=== PATIENT | female | born 1930 | race Caucasian/White ===

== ENCOUNTER → 2017-03-11 | Outpatient (CLI) | payer MEDICARE ==
[~2017-03-11] MED LIST: ACET325T PO; PRIL20TA2 PO; ROLLER WALKER1 MI1; TIMO0.255 OU; TIMO5SOL EACH EYE
[2017-03-11 16:17] LABS: AUTOMATED NEUTROPHIL # 3.5 TH/MM3 (1.8-7.7); BASOPHIL # 0.1 TH/MM3 (0-0.2); BASOPHIL % 0.4 % (0.0-2.0); EOSINOPHIL # 0.1 TH/MM3 (0-0.4); EOSINOPHIL % 0.4 % (0.0-4.0); HEMATOCRIT 38.7 % (35.0-46.0); LYMPH % 82.7 % (9.0-44.0); LYMPHOCYTE # 19.3 TH/MM3 (1.0-4.8); MEAN CELL VOLUME 88.4 FL (80.0-100.0); MEAN CORPUSCULAR HEMOGLOBIN 28.7 PG (27.0-34.0); MEAN CORPUSCULAR HGB CONC 32.5 % (32.0-36.0); MONO % 1.6 % (0.0-8.0); NEUT % 14.9 % (16.0-70.0); PLATELET COUNT 168 TH/MM3 (150-450); RED BLOOD COUNT 4.37 MIL/MM3 (4.00-5.30); RED CELL DISTRIBUTION WIDTH 15.2 % (11.6-17.2); WHITE BLOOD COUNT 23.3 TH/MM3 (4.0-11.0)
[2017-03-11 16:35] LABS: HEMO FLAGS AUTO DIFF
[2017-03-11 18:32] LABS: PLATELET ESTIMATE SMEAR NORMAL (NORMAL); PLATELET MORPHOLOGY NORMAL (NORMAL); SCAN/DIFF AUTO DIFF CONFIRMED; SMUDGE CELLS PRESENT PRESENT
== END ==
LOC: PLAB 12:40
PROVIDERS: ATTEND Family Medicine
DX: D72.828 Other elevated white blood cell count (principal)
CPT/HCPCS: 36415; 85025

== ENCOUNTER 2017-03-14 22:34 | Inpatient (IN) | payer MEDICARE ==
[~2017-03-14] VITALS: Ht 165.1 cm; Wt 73.6 kg
[~2017-03-14 22:34] MED LIST changes: -ACET325T PO; -ROLLER WALKER1 MI1; -TIMO5SOL EACH EYE
[2017-03-14 22:45] VITALS: BP 101/48; PULSE 70; RESP 14; RESP 16; TEMP 97.5; O2SAT 98; O2SAT 99
[2017-03-14] MEDS ORDERED: TIMO5SOL EACH EYE (22:45)
--- NOTE | 2017-03-14 22:58 | PD ---
HPI Chief Complaint: Altered Mental Status Time Seen by Provider: 22:41 Travel History International Travel<30 days: No Contact w/Intl Traveler<30days: No Traveled to known affect area: No History of Present Illness HPI This 87-year-old female is brought by paramedics. She was found in the parking lot of a restaurant. The hazard lights on a car with blinking and she was trying to get the car started but seemed quite confused. We initially did not know anything about this lady. She had reportedly been in the restaurant earlier. After he has arrived here I been able to talk with her daughter, Vanessa Gomez at . She indicates that the patient has recently been having some mild problems with her short-term memory but has not been overtly confused. The patient is a patient of Dr. Houston. He has an appointment with Dr. Houston this week for evaluation of possible slow leukemia. She does have a history of glaucoma and is on atenolol. The patient lives alone. sHe does drive. Patient denies any pain. She denies fevers or chills. PFSH Past Medical History Heart Rhythm Problems: No Cancer: Yes (SKIN) Cardiac Catheterization: No Cardiovascular Problems: No High Cholesterol: No Congestive Heart Failure: No Diabetes: No Diminished Hearing: No GERD: Yes (ACID REFLUX) Glaucoma: Yes Hypertension: No Immunizations Current: Yes Myocardial Infarction: No ?: Not Menopausal: Yes Past Surgical History Appendectomy: Yes Coronary Artery Bypass Graft: No Hysterectomy: Yes Tonsillectomy: Yes Social History Alcohol Use: No Tobacco Use: No Substance Use: No Allergies-Medications (Allergen,Severity, Reaction): Coded Allergies: No Known Allergies (Verified , 03/14/17) Reported Meds & Prescriptions Reported Meds & Active Scripts Active Reported Timolol Opth Drops 0.25 % Soln 1 Drop EACH EYE HS Review of Systems General / Constitutional: No: Fever, Chills Eyes: No: Diploplia, Blurred Vision HENT: No: Headaches, Vertigo Cardiovascular: No: Chest Pain or Discomfort, Palpitations Respiratory: No: Cough, Shortness of Breath Gastrointestinal: No: Nausea, Vomiting Genitourinary: No: Frequency, Dysuria Musculoskeletal: No: Myalgias, Arthralgias Neurologic: Positive: Change in Mentation, No: Weakness, Dizziness, Syncope, Focal Abnormalities Psychiatric: No: Depression Endocrine: No: Cold Intolerance Hematologic/Lymphatic: No: Easy Bruising Physical Exam Narrative GENERAL: Thin female in no acute distress SKIN: Focused skin assessment warm/dry. HEAD: Atraumatic. Normocephalic. EYES: Pupils equal and round. No scleral icterus. No injection or drainage. ENT: No nasal bleeding or discharge. Mucous membranes pink and moist. NECK: Trachea midline. No JVD. CARDIOVASCULAR: Regular rate and rhythm. No murmur appreciated. RESPIRATORY: No accessory muscle use. Clear to auscultation. Breath sounds equal bilaterally. GASTROINTESTINAL: Abdomen soft, non-tender, nondistended. Hepatic and splenic margins not palpable. MUSCULOSKELETAL: No obvious deformities. No clubbing. No cyanosis. No edema. NEUROLOGICAL: Awake and alert. No obvious cranial nerve deficits. Motor grossly within normal limits. Normal speech. She is not oriented to time. She is oriented to place. PSYCHIATRIC: She is very pleasant but her memory is poor Data Data Last Documented VS Vital Signs Date Time Temp Pulse Resp B/P Pulse Ox O2 Delivery O2 Flow Rate FiO2 03/14/17 22:45 97.5 70 14 101/48 98 Orders Electrocardiogram (03/14/17 22:51) Complete Blood Count With Diff (03/14/17 22:51) Comprehensive Metabolic Panel (03/14/17 22:51) Prothrombin Time / Inr (Pt) (03/14/17 22:51) Act Partial Throm Time (Ptt) (03/14/17 22:51) Urinalysis - C+S If Indicated (03/14/17 22:51) Magnesium (Mg) (03/14/17 22:51) Thyroid Stimulating Hormone (03/14/17 22:51) Ct Brain W/O Iv Contrast(Rout) (03/14/17 22:51) Drug Screen, Random Urine (03/14/17 22:51) Alcohol (Ethanol) (03/14/17 22:51) Chest, Single Ap (03/14/17 23:56) Admit Order (Ed Use Only) (03/15/17 00:08) Labs Laboratory Tests Test 03/14/17 23:20 White Blood Count 22.0 TH/MM3 Red Blood Count 4.27 MIL/MM3 Hemoglobin 12.3 GM/DL Hematocrit 37.7 % Mean Corpuscular Volume 88.4 FL Mean Corpuscular Hemoglobin 28.8 PG Mean Corpuscular Hemoglobin 32.6 % Concent Red Cell Distribution Width 14.6 % Platelet Count 165 TH/MM3 Mean Platelet Volume 7.9 FL Neutrophils (%) (Auto) 10.9 % Lymphocytes (%) (Auto) 83.4 % Monocytes (%) (Auto) 4.4 % Eosinophils (%) (Auto) 0.3 % Basophils (%) (Auto) 1.0 % Neutrophils # (Auto) 2.4 TH/MM3 Lymphocytes # (Auto) 18.3 TH/MM3 Monocytes # (Auto) 1.0 TH/MM3 Eosinophils # (Auto) 0.1 TH/MM3 Basophils # (Auto) 0.2 TH/MM3 CBC Comment AUTO DIFF Prothrombin Time 10.5 SEC Prothromb Time International 1.0 RATIO Ratio Activated Partial 24.9 SEC Thromboplast Time Sodium Level 139 MEQ/L Potassium Level 3.8 MEQ/L Chloride Level 103 MEQ/L Carbon Dioxide Level 28.4 MEQ/L Anion Gap 8 MEQ/L Blood Urea Nitrogen 14 MG/DL Random Glucose 94 MG/DL Calcium Level 8.2 MG/DL Magnesium Level 2.3 MG/DL Albumin 3.1 GM/DL MDM Medical Decision Making Medical Screen Exam Complete: Yes Emergency Medical Condition: Yes Medical Record Reviewed: Yes Differential Diagnosis Differential includes subdural hematoma, electrolyte imbalance, UTI, dementia Narrative Course CT scan of the brain has been read as negative for age. Her white count is elevated at 22,000 but there are predominant lymphocytes. Her daughter told me that she is being evaluated for slow moving leukemia and this may be CLL. Her electrolytes are normal. Patient remains quite confused. She cannot be released as she does live alone Diagnosis Primary Impression: Altered mental status Admitting Information Admitting Physician Requests: Observation Junito Hale MD Mar 14, 2017 22:58
[2017-03-14 23:41] LABS: AUTOMATED NEUTROPHIL # 2.4 TH/MM3 (1.8-7.7); BASOPHIL # 0.2 TH/MM3 (0-0.2); EOSINOPHIL # 0.1 TH/MM3 (0-0.4); EOSINOPHIL % 0.3 % (0.0-4.0); HEMATOCRIT 37.7 % (35.0-46.0); LYMPH % 83.4 % (9.0-44.0); LYMPHOCYTE # 18.3 TH/MM3 (1.0-4.8); MEAN CELL VOLUME 88.4 FL (80.0-100.0); MEAN CORPUSCULAR HEMOGLOBIN 28.8 PG (27.0-34.0); MEAN CORPUSCULAR HGB CONC 32.6 % (32.0-36.0); MONO % 4.4 % (0.0-8.0); NEUT % 10.9 % (16.0-70.0); PLATELET COUNT 165 TH/MM3 (150-450); RED BLOOD COUNT 4.27 MIL/MM3 (4.00-5.30); RED CELL DISTRIBUTION WIDTH 14.6 % (11.6-17.2)
[2017-03-14 23:45] LABS: HEMO FLAGS AUTO DIFF
--- NOTE | 2017-03-14 23:52 | RADHPO ---
EXAM DATE/TIME: 03/14/2017 23:24 [facility] COMPARISON: No previous studies available for comparison. INDICATIONS : Altered mental status. RADIATION DOSE: 63.92 CTDIvol (mGy) MEDICAL HISTORY : None SURGICAL HISTORY : None. ENCOUNTER: Initial ACUITY: 1 day PAIN SCALE: 0/10 LOCATION: cranial TECHNIQUE: Multiple contiguous axial images were obtained of the head. Using automated exposure control and adj ustment of the mA and/or kV according to patient size, radiation dose was kept as low as reasonably a chievable to obtain optimal diagnostic quality images. FINDINGS: CEREBRUM: The ventricles are normal for age. No evidence of midline shift, mass lesion, hemorrhage or acute in farction. No extra-axial fluid collections are seen. There is some chronic white matter changes bila terally.POSTERIOR FOSSA: The cerebellum and brainstem are intact. There is mild atrophy of the left cerebellar hemisphere. Th e 4th ventricle is midline. The cerebellopontine angle is unremarkable. EXTRACRANIAL: The visualized portion of the orbits is intact. SKULL: The calvaria is intact. No evidence of skull fracture. CONCLUSION: Normal examination for a patient of this age. Burton Hernandez MD on March 14, 2017 at 23:49 Board Certified Radiologist. This report was verified electronically.
[2017-03-15] VITALS (9 sets, daily range): BP systolic 105–135; BP diastolic 54–81; PULSE 65–80; RESP 16–18; TEMP 97.4–98.1; O2SAT 93–100
[2017-03-15 00:01] LABS: CHLORIDE 103 MEQ/L (98-107); POTASSIUM 3.8 MEQ/L (3.5-5.1); SODIUM (NA) 139 MEQ/L (136-145)
[2017-03-15 00:02] LABS: APTT (PATIENT) 24.9 SEC (24.3-30.1); PROTHROMBIN TIME - PATIENT 10.5 SEC (9.8-11.6)
[2017-03-15 00:05] LABS: ANION GAP 8 MEQ/L (5-15); BICARBONATE 28.4 MEQ/L (21.0-32.0); BLOOD UREA NITROGEN 14 MG/DL (7-18); MAGNESIUM 2.3 MG/DL (1.5-2.5)
[2017-03-15 00:08] LABS: ALT (GPT) 23 U/L (10-53); AST (GOT) 26 U/L (15-37); GLOMERULAR FILTRATION RATE 73 ML/MIN (>89)
[2017-03-15 00:09] LABS: TOTAL BILIRUBIN ADULT 0.5 MG/DL (0.2-1.0)
[2017-03-15 00:11] LABS: ALKALINE PHOSPHATASE 66 U/L (45-117)
[2017-03-15 00:12] LABS: PLATELET ESTIMATE SMEAR NORMAL (NORMAL); POLYS (SEG NEUTROPHILS) 9 % (16-70); WBC DIFF SAMPLE 100
[2017-03-15 00:13] LABS: PLATELET MORPHOLOGY NORMAL (NORMAL); SCAN/DIFF FINAL DIFF MANUAL; SMUDGE CELLS PRESENT PRESENT
[2017-03-15] MEDS ORDERED: ONDANSETRON HCL 4 MG/2 ML VIAL IVP PRN (00:45)
[2017-03-15] MEDS ORDERED: SODIUM CHLORIDE 0.9% FLUSH 10 ML FLUSH IV FLUSH PRN (00:45)
[2017-03-15] MEDS ORDERED: ACETAMINOPHEN 325 MG TAB PO PRN (00:45)
[2017-03-15] MEDS ORDERED: NALOXONE HCL 0.4 MG/ML AMP IV PRN (00:45)
[2017-03-15] MEDS ORDERED: BISACODYL 10 MG SUPP RECTAL PRN (00:45)
--- NOTE | 2017-03-15 00:47 | RADHPO ---
EXAM DATE/TIME: 03/15/2017 00:16 [facility] COMPARISON: No previous studies available for comparison. INDICATIONS : Cough/fever. MEDICAL HISTORY : None. SURGICAL HISTORY : None. ENCOUNTER: Initial ACUITY: 1 day PAIN SCORE: 0/10 LOCATION: Bilateral chest FINDINGS: A single view of the chest demonstrates the lungs to be symmetrically aerated without evidence of mas s, infiltrate or effusion. There is hyperaeration of both lung guidry. The cardiomediastinal contour s are unremarkable. Osseous structures are intact. CONCLUSION: No acute disease. Burton Hernandez MD on March 15, 2017 at 0:45 Board Certified Radiologist. This report was verified electronically.
[2017-03-15 01:04] LABS: BLOOD, URINE NEG (NEG); GLUCOSE,URINE NEG (NEG); KETONE, URINE NEG (NEG); NITRITE,URINE NEG (NEG); PH, URINE 5.5 (5.0-8.5)
[2017-03-15 01:14] LABS: URINE COLOR YELLOW (YELLW/STRAW)
[2017-03-15 01:15] LABS: SQUAMOUS EPITHELIAL CELL URINE 0-5 /hpf (0-5)
[2017-03-15 01:17] LABS: BACTERIA, URINE OCC /hpf; COMMENT (UR) CULTURE INDICATED; CULTURE IF INDICATED CULTURE INDICATED
[2017-03-15 01:22] LABS: AMPHETAMINE, URINE NEG (NEG)
[2017-03-15 01:24] LABS: BARBITURATES, URINE NEG (NEG)
[2017-03-15 01:28] LABS: COCAINE, URINE NEG (NEG)
[2017-03-15 06:10] LABS: POTASSIUM 4.4 MEQ/L (3.5-5.1)
[2017-03-15 06:11] LABS: HEMATOCRIT 36.4 % (35.0-46.0); MEAN CORPUSCULAR HEMOGLOBIN 28.8 PG (27.0-34.0); MEAN CORPUSCULAR HGB CONC 32.4 % (32.0-36.0); PLATELET COUNT 160 TH/MM3 (150-450); RED CELL DISTRIBUTION WIDTH 15.1 % (11.6-17.2); WHITE BLOOD COUNT 17.9 TH/MM3 (4.0-11.0)
[2017-03-15 06:13] LABS: BICARBONATE 31.2 MEQ/L (21.0-32.0)
[2017-03-15 06:26] LABS: HEMO FLAGS AUTO DIFF
[2017-03-15 08:10] LABS: EOSINOPHILS 1 % (0-4); NEUTROPHIL # MANUAL DIFF 2.7 TH/MM3 (1.8-7.7); POLYS (SEG NEUTROPHILS) 15 % (16-70); WBC DIFF SAMPLE 100
[2017-03-15 08:12] LABS: PLATELET ESTIMATE SMEAR NORMAL (NORMAL); PLATELET MORPHOLOGY NORMAL (NORMAL); SCAN/DIFF FINAL DIFF MANUAL
--- NOTE | 2017-03-15 14:32 | EKG ---
Date Performed: 03/14/2017 Time Performed: 23:05:50 PTAGE: 87 years EKG: Sinus rhythm with PAC(s) rSr'(V1) - probable normal variant Poor R wave progression - probable normal variant Bor derline ECG PREVIOUS TRACING : 01/07/2008 22.02 Compared to prior tracing no significant change DOCTOR: Goran Robert Interpretating Date/Time 03/15/2017 14:27:16
[2017-03-15] MEDS: HEPARIN SODIUM - SQ 10,000 UNITS/ML VIAL SQ SCH ×2 (16:48→22:21)
[2017-03-15] MEDS: SODIUM CHLORIDE 0.9% FLUSH 10 ML FLUSH IV FLUSH SCH ×2 (16:49→22:21)
[2017-03-15] MEDS ORDERED: cefTRIAXone INJ 1,000 MG in SODIUM CHLORIDE 0.9% INJ 100 ML IV ONE (17:00)
--- NOTE | 2017-03-15 18:28 | MH ---
cc: EIMLE SANCEHZ M.D. DATE OF ADMISSION 03/15/2017 CHIEF COMPLAINT Altered mental status. ADMISSION DIAGNOSIS Altered mental status, alcohol use. HISTORY OF PRESENT ILLNESS Ms. Shin is an 87-year-old white female that I have seen in the office once in the past, who was brought into the hospital by the paramedics. She was found to the parking lot of a restaurant. Apparently she had hazard lights on her car blinking and she was trying to get the car started but could not figure out how to do it. When I had seen her at the office about a month ago for evaluation she was with her granddaughter who stated that she was living alone but functioning fairly well at that point. She did seem to have some short-term memory loss but nothing to the point of not functioning at home. When I saw the patient this morning she noted that she had been at [place] having dinner. She states that she was eating by herself. She thinks that she had one glass of wine. She does not recall having more than one glass of wine and she does not normally have more than that at a time and does not drink every day. She remembers having dinner and the drink but does not remember anything else prior to coming to the hospital. She is aware that she is at the hospital this morning but unable to give me any other history. She denies any other symptoms at this time. PAST MEDICAL HISTORY Significant for: 1. Glaucoma 2. And mild memory loss. PAST SURGICAL HISTORY 1. GEOPHYSICAL OBSERVER prolapse surgery in 2014. 2. Urethral dilation 2014. 3. Cystoscopy 2014. 4. Right foot surgery 2010. 5. Cataract surgery bilateral 2012. 6. Skin cancer removals. 7. ____ repair in 1996. 8. Myxoma removal 1992. 9. Hysterectomy 1987. 10. Appendectomy 1951. 11. Tonsillectomy and adenoidectomy 1951. FAMILY HISTORY Dad is . She does not know his history. Mom is of old age. SOCIAL HISTORY She is . She is not working. She completed college. My former history said that she may have two to three alcoholic drinks per day. She is a former smoker, quit 40 years ago. She started at age 17 and smoked one to two cigarettes per day. She denied any other drug or substance abuse. She has one daughter who lives in [place]. MEDICATIONS Timolol maleate 0.5% one drop to each eye every morning. ALLERGIES NO KNOWN DRUG ALLERGIES. REVIEW OF SYSTEMS She denies any headache. No vision changes. No chest discomfort or shortness of breath. No abdominal pain. No hematochezia, melena. No dysuria. No hematuria. No lower extremity edema. No changes to her skin. She overall feels that she has not been having any problems with memory. She feels that she is getting along well and living alone without problems. She feels that she is handling her daily affairs without any problem. Of note I did speak with her daughter after seeing her this morning who states that she seems to be getting more and more forgetful. She is not so sure that she is keeping up with hygiene or cleaning in her house and what not and she is going to her house to check on those things this afternoon. She is concerned because she lives in [place] is not able to be immediately available for her mom and may need to see about moving her further south. She has apparently lost a significant amount of weight. We have only seen her twice in the office in October and then in November, so I do not really have any longevity with her and I still do not have other labs on her. Her weight was 105.8 in November. I do not know her current weight here at the hospital. Also she apparently had an elevated white blood cell count and was seeing an oncologist in [facility] but we do not know who that oncologist is or what the plan of care was. I suspect that she had been diagnosed with a CLL. Other physicians that she is seeing: Dr. Alva, retinal specialist. Dr. Fisher eye surgeon. 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 Dr. Lizarraga dermatology. She has been seen at [facility]. Dr. Griffin for GI. Dr. Bhandari for GEOPHYSICAL OBSERVER. Dr. Rome for orthopedics. OBJECTIVE VITAL SIGNS: She is afebrile. Pulse rate in the 70s, respiratory rate 14, blood pressure 101/48, pulse ox was in the 98 range on room here. GENERAL: She is a well-developed white female in no acute distress. Pleasant. She did not seem to remember me from the office. HEENT: Pupils\ were equal and reactive to light. Extraocular movements were intact. Nose no discharge. Oropharynx is benign. NECK: Supple without lymphadenopathy. No thyromegaly. No carotid bruits. CARDIOVASCULAR: Regular rate and rhythm without murmurs, rubs or gallops. LUNGS: Clear to auscultation bilaterally. No wheezes, rhonchi. ABDOMEN: Soft and nontender. Normal bowel sounds. Scar is well healed. EXTREMITIES: Show no edema. She has 05/05 strength bilaterally upper and lower extremities. I did not ambulate her at this time. She was aware of the month, the year, not specifically the date. She knew she was at the hospital. She knew the city and where she lives. She was oriented to the president. She was able spell the word world backwards. She had a 1/3 memory at 3 minutes. She was able to identify objects well. She was speaking normally. LABORATORY DATA White count was 22 on admission, 17.9 on followup. Hemoglobin 12.3, platelets of 165, slight increase in the lymphocytes at 83.4%. INR was within normal limits. Chemistries were within normal limits other than slightly low protein and albumin. Toxicology was negative other than alcohol level of 90 milligrams/dl. Urinalysis showed small leukocyte esterase, occasional white blood cell clumps, occasional bacteria, negative nitrite, negative ketones. Pending urine culture. IMAGING Chest x-ray was negative. CT scan of the head showed a normal exam for this age. No sign of stroke. ASSESSMENT/PLAN 1. Altered mental status. I am not sure if she may have had a TIA versus related to alcohol use. She seems to be at the baseline that I had seen her in the office in November. We will see how she does in the hospital with her ambulation and what not tonight. I will speak further with her daughter. Her daughter will investigate things at her house to see how she is doing and we can make a plan on discharge in the morning. 2. Urinary tract infections. She does have slightly increased white blood cell count. However, I believe that is probably related more to a CLL issue than acute infection. She does have some bacteria in her urine, so we will treat her for urinary tract infection with Rocephin 1 gram IV today. 3. Possible dimension / delirium. I had recommended further evaluation regarding dementia at our last appointment but the patient and her family did not want to pursue it. She seemed to be doing well on her own, obviously this will need to be taken care of sooner. 4. Alcohol use. The patient denies any significant history. She only believes she had one alcoholic drink at the time of the event. Even just one drink in addition to ongoing dementia could be an issue. Her daughter will see if she can investigate what she actually did have to drink at [place] prior to getting in her car. Disposition will be determined dependent upon on how she is doing in the morning. MD DC Franco/TALI /5:06 PM /5:45 PM
[2017-03-15] MEDS: TIMOLOL MALEATE 0.25% OPHT SOLN 5 ML BTL EACH EYE SCH (22:24)
[2017-03-16 01:00] VITALS: BP 111/61; PULSE 69; RESP 16; TEMP 96.1; O2SAT 97
[2017-03-16 08:00] VITALS: BP 103/70; PULSE 71; RESP 18; TEMP 97; O2SAT 97
--- NOTE | 2017-03-16 09:12 | HHI.FPPN ---
Subjective Remarks Feels okay. Vague about events. Not sure if she had visitors yesterday, not really sure why she is in the hospital. Wants to go home. As we talked she noted that someone found her confused at the restaurant and brought her here and that her daughter and granddaughter were here yesterday from [facility] and are staying at her house. No CP, SOB, Abd pain, N/V, diarrhea, dysuria, fever. Frustrated staff won't let her get up without supervision. Nurse noted significant instability. Pt states she doesn't have walker or cane at home Objective Vitals Vital Signs Date Time Temp Pulse Resp B/P Pulse Ox O2 Delivery O2 Flow Rate FiO2 03/16/17 08:00 97.0 71 18 103/70 97 03/16/17 01:00 96.1 69 16 111/61 97 03/15/17 20:45 97.4 78 16 105/54 98 03/15/17 16:00 98.1 65 18 129/81 100 03/15/17 16:00 97.8 80 18 135/76 96 03/15/17 12:00 97.6 73 18 115/58 94 03/15/17 09:31 64 16 114/58 98 03/15/17 09:30 98.0 71 18 127/61 93 I/O 03/15/17 03/15/17 03/15/17 03/16/17 03/16/17 03/16/17 07:00 15:00 23:00 07:00 15:00 23:00 Intake Total 750 ml 400 ml 0 ml 50 ml Output Total 460 ml Balance -460 ml 750 ml 400 ml 0 ml 50 ml Intake Oral 750 ml 400 ml 50 ml IV Total 0 ml 0 ml Output Urine Total 460 ml # Voids 4 1 1 # Bowel Movements 0 0 Result Diagram: 03/15/17 0545 03/15/17 0545 Objective Remarks Gen: Thin, elderly WF, vague in responses, slow speech but word finding is fine , no slurring CV: RRR Lungs: clear Abd: NT Ext: thin, no edema, 2+ pulses Gait: able to get out of bed without assist, shuffling gait, no cogwheeling, unsteady with turning, not her gait that I saw her with in November. Urinary Catheter: No Vascular Central Line Catheter: No A/P Problem List: (1) Altered mental status Status: Acute Plan: could have been ETOH related, could have been TIA. Check MRI of the brain since CT was negative. PT today regarding gait. Will discuss with daughter. Advised pt plan of care would optimally be rehab vs RICK and not to go home alone. She is open to discussion with her daughter today. REally wants to go home. Doesn't see that she has deficits. (2) Glaucoma Status: Chronic Plan: continue meds. (3) Memory loss, short term Status: Chronic Plan: Gradually worsening over time per family but much worse now than in November. Family felt in November she was functioning well at home and now that is questionable (4) CLL (chronic lymphocytic leukemia) Status: Chronic Plan: She had seen someone in [facility] but doesn't know who. I'm not sure that I was able to get records not knowing who I was requesting records from. Will ccheck my office chart. Mild WBC elevation. (5) Loss of weight Status: Chronic Plan: Per history down about 70 pounds. Looks like she is down 4-5 pounds since November. Not sure if she is eating well at home. More oversight is needed. (6) UTI (urinary tract infection) Status: Acute Plan: treated with rocephin yesterday. pending culture. not symptomatic. Not sure if that is contributing to her symptoms of altered mental status. Problem Qualifiers (1) Altered mental status: Qualified Code: R40.4 - Transient alteration of awareness (2) Glaucoma: Qualified Code: H40.9 - Glaucoma of both eyes, unspecified glaucoma (3) UTI (urinary tract infection): Qualified Code: N30.00 - Acute cystitis without hematuria Basilia Houston MD Mar 16, 2017 09:12
[2017-03-16] MEDS: SODIUM CHLORIDE 0.9% FLUSH 10 ML FLUSH IV FLUSH SCH ×2 (10:59→21:41)
[2017-03-16] MEDS: HEPARIN SODIUM - SQ 10,000 UNITS/ML VIAL SQ SCH ×2 (10:59→21:39)
[2017-03-16 12:00] VITALS: BP 104/72; PULSE 76; RESP 18; TEMP 97.2; O2SAT 96
--- NOTE | 2017-03-16 14:54 | RADHPO ---
EXAM DATE/TIME: 03/16/2017 13:56 [facility] COMPARISON: CT BRAIN W/O CONTRAST, March 14, 2017, 23:24. INDICATIONS : TIA. Episode of altered mental status. MEDICAL HISTORY : Glaucoma. SURGICAL HISTORY : Hysterectomy. Appendectomy. Tonsillectomy. ENCOUNTER: Subsequent ACUITY: 2 day PAIN SCORE: 0/10 LOCATION: head. TECHNIQUE: Multiplanar, multisequence MRI of the brain was performed without contrast. FINDINGS: CEREBRUM: The ventricles are normal for age. No evidence of midline shift, mass lesion, hemorrhage or acute in farction. No extraaxial fluid collections are seen. The pituitary gland and suprasellar cistern are normal in configuration. WHITE MATTER: Mild to moderate white matter changes in the periventricular and deep white matter tract distribution as well as within the barron. POSTERIOR FOSSA: The cerebellum and brainstem are intact. White matter changes as discussed above. The 4th ventricle is midline. The cerebellopontine angle is unremarkable. The cerebellar tonsils are normal in positio n. DIFFUSION IMAGING: Faint increased diffusion signal in the posterior limbs of the internal capsule extending down to the cerebral peduncles. However, signal intensity is normal on the ADC maps in this probably represents some T2 shine through. EXTRACRANIAL: The visualized portions of the orbits and are unremarkable. Small air-fluid level in the sphenoid sin us characteristic of a mild, acute sinusitis. Endosteal areas of increased T1 signal intensity in the frontal bone is characteristic of hyperostosis frontalis internus CONCLUSION: 1. Chronic white matter changes in the periventricular and deep white matter distribution of the cere sanjay and the barron of the posterior fossa. 2. Small air-fluid level in the sphenoid sinus concerning for acute sinusitis 3. Otherwise, no acute intracranial process to explain current clinical symptoms. Rd Vaughn MD on March 16, 2017 at 14:46 Board Certified Radiologist. This report was verified electronically.
[2017-03-16 16:00] VITALS: BP 105/59; PULSE 78; RESP 18; TEMP 96.9; O2SAT 99
--- NOTE | 2017-03-16 17:24 | HHI.PR ---
Addendum to Inpatient Note Addendum Reason: Additional Documentation Additional Information I spoke with her daughter today who notes that her house is cluttered, no clear counters, not clean. Not sure if she has been paying her bills correctly, not her normal self. Definite decline since November. States there is no room in her hallways/rooms for her to use a walker at home. Has no one locally to help her. Will need to work on NH placement for rehab and gait stabilization and I would like her to get in with neurologist/neuropsychologist for further eval/ treatment. will also need hem/onc f/u for CLL (not urgent). Daughter will investigate options. Plan for discharge would be . Continue PT in the interim. Basilia Harmon MD Mar 16, 2017 17:24
[2017-03-16] MEDS: cefTRIAXone INJ 1,000 MG in SODIUM CHLORIDE 0.9% INJ 100 ML IV SCH (18:05)
[2017-03-16 20:42] VITALS: BP 105/61; PULSE 72; RESP 16; TEMP 97.5; O2SAT 98
[2017-03-16] MEDS: TIMOLOL MALEATE 0.25% OPHT SOLN 5 ML BTL EACH EYE SCH (21:45)
[2017-03-17 00:42] VITALS: BP 113/72; PULSE 70; RESP 16; TEMP 97.7; O2SAT 99
[2017-03-17 08:00] VITALS: BP 121/61; PULSE 63; RESP 18; TEMP 96; O2SAT 97
--- NOTE | 2017-03-17 08:44 | HHI.FPPN ---
Subjective Remarks No complaints from patient today. States she is feeling well. She doesn't remember talking with me yesterday about potential discharge plans and states she didn't have any discussion with her daughter regarding plans for rehab/USP/ etc. She is willing to be discharged to any such facility. Seems overall non- committal. Didn't really make a comment other than OK when I advised I was concerned with her going home alone and didn't feel it was safe. Denies pain, CP, SOB, abdominal pain, etc. States she is eating well. Objective Vitals Vital Signs Date Time Temp Pulse Resp B/P Pulse Ox O2 Delivery O2 Flow Rate FiO2 03/17/17 00:42 97.7 70 16 113/72 99 03/16/17 20:42 97.5 72 16 105/61 98 03/16/17 16:00 96.9 78 18 105/59 99 03/16/17 12:00 97.2 76 18 104/72 96 I/O 03/16/17 03/16/17 03/16/17 03/17/17 03/17/17 03/17/17 07:00 15:00 23:00 07:00 15:00 23:00 Intake Total 0 ml 500 ml 560 ml 0 ml Balance 0 ml 500 ml 560 ml 0 ml Intake Oral 500 ml 560 ml IV Total 0 ml 0 ml 0 ml # Voids 6 3 2 # Bowel Movements 0 0 Result Diagram: 03/15/17 0545 03/15/17 0545 Objective Remarks Gen: Thin, elderly WF, vague in responses, slow speech but word finding is fine , no slurring, doesn't expound on answers even when given the opportunity CV: RRR Lungs: clear Abd: NT Ext: thin, no edema, 2+ pulses PT reports 250 feet with a walker, unsteady without walker, no need for further PT outpatient apparently Urinary Catheter: No Vascular Central Line Catheter: No A/P Problem List: (1) Altered mental status Status: Acute Plan: could have been ETOH related, could have been TIA. MRI brain and CT scan negative. PT felt she did well with a walker, not really a candidate for rehab. Advised pt plan of care would optimally be rehab vs [facility] and not to go home alone. Looks more like [facility] as she is able to transfer independently and walk safely with a walker. She is open to discussion with her daughter today. REally wants to go home. Doesn't see that she has deficits yet seems to be okay with whatever her family plans for her. Will discharge once safe plan obtained. (2) Glaucoma Status: Chronic Plan: continue meds. (3) Memory loss, short term Status: Chronic Plan: Gradually worsening over time per family but much worse now than in November (she had MMS of 25/30 in Nov missing 4 on serial 7s and 1 point at 5 minute recall). Family felt in November she was functioning well at home and now that is questionable. Daughter feels home is unsafe for her to return to alone. Would recommend neurology f/u at discharge and possibly starting medications. NO sign of ETOH withdrawl during the hospitalization. Pt and family don't feel ETOH has been an issue. I don't have adjunct faculty for medical terminology knowledge of her as I first met her in November 2016. (4) CLL (chronic lymphocytic leukemia) Status: Chronic Plan: She had seen someone in Oncology in [facility] but doesn't know who. I'm not sure that I was able to get records not knowing who I was requesting records from. I don't see that I have received any outside records at my office. peripheral smear c/w CLL. Would have her f/u with oncology after discharge, but WBC is not at a concerning level at this point and I doubt any therapy would be started yet. (5) Loss of weight Status: Chronic Plan: Per history down about 70 pounds. Looks like she is down 4-5 pounds since November. Not sure if she is eating well at home. More oversight is needed. (6) UTI (urinary tract infection) Status: Acute Plan: treated with rocephin x2. pending culture (Group D enterococcus pending sensativity). not symptomatic. Not sure if that is contributing to her symptoms of altered mental status. Problem Qualifiers (1) Altered mental status: Qualified Code: R40.4 - Transient alteration of awareness (2) Glaucoma: Qualified Code: H40.9 - Glaucoma of both eyes, unspecified glaucoma (3) UTI (urinary tract infection): Qualified Code: N30.00 - Acute cystitis without hematuria Basilia Houston MD Mar 17, 2017 08:44
[2017-03-17] MEDS: HEPARIN SODIUM - SQ 10,000 UNITS/ML VIAL SQ SCH ×2 (09:33→19:45)
[2017-03-17] MEDS: SODIUM CHLORIDE 0.9% FLUSH 10 ML FLUSH IV FLUSH SCH ×2 (09:34→21:00)
[2017-03-17 12:52] VITALS: BP 120/65; PULSE 79; RESP 18; TEMP 95.4; O2SAT 98
[2017-03-17 16:00] VITALS: BP 121/61; PULSE 72; RESP 18; TEMP 97.2; O2SAT 99
--- NOTE | 2017-03-17 17:16 | HHI.PR ---
Addendum to Inpatient Note Addendum Reason: Additional Documentation Additional Information I spoke with her daughter today. she is trying to get POA papers in order for her and trying to get her into an CUSTODIAL. I advised that she is medically ready for discharge and if CUSTODIAL is not immediately available we will need to arrange for discharge home with family or to home with hired caregivers in the interim. Hopefully will plan for tomorrow. I will fill out the CUSTODIAL forms for her for tomorrow. Basilia Harmon MD Mar 17, 2017 17:16
[2017-03-17] MEDS: cefTRIAXone INJ 1,000 MG in SODIUM CHLORIDE 0.9% INJ 100 ML IV SCH (17:36)
[2017-03-17] MEDS: TIMOLOL MALEATE 0.25% OPHT SOLN 5 ML BTL EACH EYE SCH (19:45)
[2017-03-17 20:00] VITALS: BP 113/55; PULSE 76; RESP 18; TEMP 96; O2SAT 100
[2017-03-18] VITALS: BP 104/60; PULSE 71; RESP 18; TEMP 96.3; O2SAT 98
[2017-03-18] MEDS ORDERED: ACET325T PO (06:28)
[2017-03-18] MEDS ORDERED: ROLLER WALKER1 MI1 ×2 (06:31→12:11)
--- NOTE | 2017-03-18 06:35 | HHI.FF ---
Face to Face Verification Diagnosis: (1) Memory loss, short term (2) CLL (chronic lymphocytic leukemia) (3) Loss of weight Occupational Therapy Order: Evaluate and Treat, Improve ADL Instructions: Advise on patient's competence with doing ADLs such as bathing, cooking, cleaning, etc. Home Health Nursing Order: Medical education Signs/symptoms of disease process Instructions: Supervise use of eye drops, make sure she is safe in home--no medications for accidental use. Home Health Aide Order: To Assist In: heading pinner and meal prep Instructions: Supervise her activities at home to see what she is capable of doing I have seen patient Giselle Shin on 03/18/17. My clinical findings support the need for the requested home health care services because: Impaired cognition/judgement High risk of falls I certify that my clinical findings support that this patient is homebound because: Impaired cognitive ability/safety Unsteady gait/balance Unsafe to leave home unassisted (Not sure she would be safe to drive. ) Basilia Houston MD Mar 18, 2017 06:35
[2017-03-18 08:00] VITALS: BP 122/63; PULSE 67; RESP 20; TEMP 96.8; O2SAT 99
[2017-03-18] MEDS: HEPARIN SODIUM - SQ 10,000 UNITS/ML VIAL SQ SCH (08:54)
[2017-03-18] MEDS: SODIUM CHLORIDE 0.9% FLUSH 10 ML FLUSH IV FLUSH SCH (08:55)
--- NOTE | 2017-03-18 08:56 | HHI.DS ---
Discharge Summary Admission Date Mar 15, 2017 at 16:14 Discharge Date: Mar 18, 2017 Admitting Diagnosis ALTERED MENTAL STATUS (1) Altered mental status Diagnosis: Principal Plan: could have been ETOH related, could have been TIA. MRI brain and CT scan negative. PT felt she did well with a walker, not really a candidate for rehab. Advised pt plan of care would optimally be rehab vs [facility] and not to go home alone. Looks more like [facility] as she is able to transfer independently and walk safely with a walker. She is open to discussion with her daughter today. REally wants to go home. Doesn't see that she has deficits yet seems to be okay with whatever her family plans for her. Will discharge once safe plan obtained. suspect dementia has progressed since November and is truely the underlying condition. She has little recall of what happens from day to day in the hospital. She thinks that her daughter and granddaughter have made plans for her to go to stay with her granddaughter, Etelvina, at this time. (2) Glaucoma Plan: continue meds. (3) Memory loss, short term Diagnosis: Principal Plan: Gradually worsening over time per family but much worse now than in November (she had MMS of 25/30 in Nov missing 4 on serial 7s and 1 point at 5 minute recall). Family felt in November she was functioning well at home and now that is questionable. Daughter feels home is unsafe for her to return to alone. Would recommend neurology f/u at discharge and possibly starting medications. NO sign of ETOH withdrawl during the hospitalization. Pt and family don't feel ETOH has been an issue. I don't have computer terminal operator knowledge of her as I first met her in November 2016 and wasn't able to get old records as she didn't know who she had seen in the past. (4) CLL (chronic lymphocytic leukemia) Diagnosis: Secondary Plan: She had seen someone in Oncology in [facility] but doesn't know who. I'm not sure that I was able to get records not knowing who I was requesting records from. I don't see that I have received any outside records at my office. peripheral smear c/w CLL. Would have her f/u with oncology after discharge, but WBC is not at a concerning level at this point and I doubt any therapy would be started yet. Monitor at least at 3 month intervals with CBC and seek care if WBC doubling (5) Loss of weight Diagnosis: Secondary Plan: Per history down about 70 pounds. Looks like she is down 4-5 pounds since November. Not sure if she is eating well at home. More oversight is needed. She has been eating well in the hospital. LIkely will improve if meals are provided for her (6) UTI (urinary tract infection) Diagnosis: Principal Plan: treated with rocephin x3. pending culture (Group D enterococcus pending sensativity). not symptomatic. Not sure if that is contributing to her symptoms of altered mental status. stop antibiotics now Brief History 87 yo WF found at a local restaurant confused as to how to drive/start her car. Brought to the ED for evaluation and treatment via [facility]. Found to have initial blood ETOH 90mg/dl. CBC/BMP: 03/15/1745 03/15/[address]/MRI brain negative for CVA PE at Discharge Gen: Thin, elderly WF, vague in responses, slow speech but word finding is fine , no slurring, doesn't expound on answers even when given the opportunity, thinks the plan is to go with her granddaughter for now CV: RRR Lungs: clear Abd: NT Ext: thin, no edema, 2+ pulses PT reports 250 feet with a walker, unsteady without walker, no need for further PT outpatient apparently Hospital Course Pt monitored overnight in the ED and initial severe confusion improved. She was functional but with significant short term memory deficits. She is pleasant but possibly lacking adequate decision making. Daughter states that her home is unsafe for her to return to due to clutter. She was treated for UTI, evaluated for CVA (negative). Vitals remained stable. She had no s/s of ETOH withdrawl so I doubt chronic severe ETOH use is an issue. She did not show any further improvement in her memory over the next 2 days. I had only seen her once in November. she has paucity of speech and it is difficult to evaluate her ability to function while here in the hospital. Recommend full neuro/psych eval as outpatient after discharge. Pt Condition on Discharge: Good Discharge Disposition: Disch w/ Home Health Serv Discharge Instructions DIET: Follow Instructions for: As Tolerated, No Restrictions Activities you can perform: Regular-No Restrictions Other Activity Instructions: use walker at all times Basilia Houston MD Mar 18, 2017 08:56
== END 2017-03-18 15:03 | disposition home health service (06) | DRG 884 ==
LOC: PHED 22:34 → PHEDA 03-15 00:10 → PHEDH 03-15 04:09 → PH3B 03-15 09:31 → OBSVTOIN 03-15 16:14
PROVIDERS: ADMIT Family Medicine; ATTEND Family Medicine
DX: F03.90 Unspecified dementia, unspecified severity, without behavioral disturbance, psychotic disturbance, mood disturbance, and anxiety (principal); C91.10 Chronic lymphocytic leukemia of B-cell type not having achieved remission; N39.0 Urinary tract infection, site not specified; R41.82 Altered mental status, unspecified; H40.9 Unspecified glaucoma; R63.4 Abnormal weight loss; Z72.89 Other problems related to lifestyle; Y90.4 Blood alcohol level of 80-99 mg/100 ml
CPT/HCPCS: 70450; 70551; 71010; 80048; 80053; 80307; 81001; 83735; 84443; 85007; 85027; 85610; 85730; 87077; 87086; 87186; 93005; J0696; J1644